=== PATIENT | male | born 1965 | race Caucasian/White ===

== ENCOUNTER 2025-02-13 06:01 | Day surgery (SDC) | payer BC ==
[2025-02-13] MEDS: Lactated Ringers 1,000 ML IV SCH (06:13)
[2025-02-13 06:17] VITALS: RESP 16
[2025-02-13] MEDS ORDERED: propofoL IV ONE ×2 (07:21→07:42)
[2025-02-13] MEDS ORDERED: Xylocaine-Mpf 2% 5 Ml Vial ONE (07:21)
[2025-02-13 08:21] VITALS: O2SAT 98
[2025-02-13 08:28] VITALS: BP 119/83; PULSE 74; TEMP 97.6
--- NOTE | 2025-02-14 10:00 | OP ---
SURGERY DATE/TIME: 02/13/2025 [id number] PREOPERATIVE DIAGNOSIS: Screening exam. POSTOPERATIVE DIAGNOSIS: Normal colon. PROCEDURE: Colonoscopy. SURGEON: Jg Hoffmann MD. ANESTHESIA: Medication given by the anesthesia department. INDICATIONS: The patient is a 59-year-old white male patient, presenting now for screening colonoscopy. The patient was apprised of the risks of the procedure including risk of perforation, phlebitis, untoward reaction to medication, bleeding, and missed lesions. The patient verbalized his understanding and desired to have procedure performed. DESCRIPTION OF PROCEDURE AND FINDINGS: The patient was given medication by the anesthesia department. He had continuous pulse oximetry, ECG monitoring, and intermittent blood pressure monitoring during the examination. He was placed in left lateral decubitus position. Digital rectal examination was performed and revealed normal anal sphincter tone, no masses, and a normal prostate. The flexible Olympus videocolonoscope was used to intubate the rectum. A view of the colon was developed sequentially to the cecum. Upon insertion and withdrawal, including retroflexed view in the rectum, no mucosal lesions were encountered. The scope was removed from the patient who tolerated the procedure well and was sent back to outpatient recovery in good condition. The prep was noted to be fair to good.
== END 2025-02-13 08:42 | disposition home or self-care (01) ==
LOC: SDC 06:01
PROVIDERS: ATTEND Family Medicine
DX: Z12.11 Encounter for screening for malignant neoplasm of colon (principal)